=== PATIENT | female | born 1995 | race Caucasian/White ===

== ENCOUNTER → 2021-01-18 10:16 | Outpatient (CLI) | payer BC, SELFPAY ==
[2021-01-24 15:22] LABS: HPV Reflexed? NOT INDICATED
== END ==
PROVIDERS: PCP Pediatrics; Visit Provider Student in an Organized Health Care Education/Training Program
DX: Z12.4 Encounter for screening for malignant neoplasm of cervix (principal)
CPT/HCPCS: 88175; G0145

== ENCOUNTER → 2023-02-02 | Outpatient (CLI) | payer BC, SELFPAY ==
[2023-02-02 13:41] LABS: HIV - WCH Non-Reactive (Nonreactive); Syphilis Antibodies Non-reactive
[2023-02-03 05:07] LABS: HEPATITIS B SURFACE AG Negative (Negative); Hep B Surface Antibodies Reactive (.); Hepatitis B Core Ab Total Negative (Negative)
== END | disposition home or self-care (01) ==
LOC: WOBLAB 11:42
PROVIDERS: PCP Pediatrics; Visit Provider Student in an Organized Health Care Education/Training Program
DX: Z01.419 Encounter for gynecological examination (general) (routine) without abnormal findings (principal)
CPT/HCPCS: 36415; 86703; 86704; 86705; 86706; 86707; 86780; 86803; 87340; 87350